=== PATIENT | male | born 1955 | race African-American/Black ===

== ENCOUNTER 2017-07-27 10:23 | Emergency (ER) | payer MEDICAID, OTHER ==
[~2017-07-27] VITALS: Ht 185.4 cm; Wt 104.0 kg
[2017-07-27 11:01] VITALS: BP 130/99
== END 2017-07-27 15:20 | disposition left against medical advice (07) ==
LOC: ER 10:58
DX: Z53.21 Procedure and treatment not carried out due to patient leaving prior to being seen by health care provider (principal)

== ENCOUNTER 2018-07-08 04:07 | Emergency (ER) | payer MEDICAID ==
[~2018-07-08] VITALS: Ht 182.9 cm; Wt 100.0 kg
[2018-07-08] MEDS ORDERED: MECLIZINE 25MG TABLET PO ONE (05:00)
[2018-07-08] MEDS ORDERED: ONDANSETRON HCL 4MG/2ML INJ IV ONE (05:00)
[2018-07-08 05:11] LABS: BASOPHILS % 0.9 % (0.0-2.0); EOSINOPHILS % 3.3 % (0.0-5.0); HEMATOCRIT. 42.6 % (42.0-52.0); HEMOGLOBIN. 14.3 g/dL (14.0-18.0); LYMPHOCYTES % 19.7 % (20.0-50.0); MEAN CORPUSCULAR HEMOGLOBIN 27.5 pg (28.0-32.0); MEAN CORPUSCULAR VOLUME 81.8 fL (80.0-94.0); MEAN PLATELET VOLUME 8.6 fl (7.4-10.4); MONOCYTES % 9.5 % (2.0-8.0); NEUTROPHILS % 66.6 % (40.0-76.0); PLATELET 196 x1000/uL (130-400); RED BLOOD CELL COUNT 5.21 mill/uL (4.7-6.1); RED CELL DISTRIBUTION WIDTH 14.5 % (11.6-14.6)
[2018-07-08 05:16] LABS: CHLORIDE 105 mEq/L (98-107)
[2018-07-08 06:23] VITALS: BP 129/80
== END 2018-07-08 06:25 | disposition home or self-care (01) ==
LOC: ER 04:07
DX: R42 Dizziness and giddiness (principal); R11.2 Nausea with vomiting, unspecified; F12.10 Cannabis abuse, uncomplicated; F17.200 Nicotine dependence, unspecified, uncomplicated; Z96.659 Presence of unspecified artificial knee joint
CPT/HCPCS: 36415; 71045; 84484; 93005; 99284; J8597